=== PATIENT | male | born 1990 | race Caucasian/White ===

== ENCOUNTER 2022-06-10 19:28 | Emergency (ER) | payer OTHER, SELFPAY ==
[2022-06-10] MEDS ORDERED: Lidocaine 1% (PF) 30 ML VIAL ONE (19:40)
[2022-06-10] MEDS ORDERED: HYDROcodone/Acetaminophen 5/325 mg Tablet ONE (19:42)
[2022-06-10] MEDS ORDERED: Boostrix 0.5 ML (Tdap) VIAL ONE (19:54)
== END 2022-06-10 20:30 | disposition home or self-care (01) ==
LOC: BURERS 19:28
DX: S01.81XA Laceration without foreign body of other part of head, initial encounter (principal); S60.312A Abrasion of left thumb, initial encounter; F17.210 Nicotine dependence, cigarettes, uncomplicated; X58.XXXA Exposure to other specified factors, initial encounter
CPT/HCPCS: 12011; 90471; 90715; J2001